=== PATIENT | female | born 1970 | race Caucasian/White ===

== ENCOUNTER → 2021-05-28 13:15 | Outpatient (CLI) | payer BC, SELFPAY ==
--- NOTE | 2021-05-28 | DI.RAD.S_ITS ---
PROCEDURE: XR KNEE LT 3V INDICATIONS: Pain in left knee TECHNIQUE: 3 views of the knee were acquired. COMPARISON: None. FINDINGS: Bones: No fractures or dislocations. No suspicious bony lesions. Moderate tricompartmental degenerative changes of the left knee with moderate medial femorotibial compartment joint space narrowing. Marginal osteophytes noted in all 3 compartments. Moderate joint space narrowing of the lateral patellofemoral joint. Soft tissues: Small-moderate sized suprapatellar joint effusion. No suspicious soft tissue calcifications. IMPRESSION: Left knee without acute fracture or dislocation. Moderate tricompartmental degenerative changes of the left knee most severe in the medial femorotibial compartment and lateral patellofemoral compartment. [id number] suprapatellar effusion. Dictated by: Misael Hanson M.D. on 05/28/2021 at 14:04 Approved by: Misael Hanson M.D. on 05/28/2021 at 14:06
== END ==
PROVIDERS: PCP Family Medicine; Referring Provider Family Medicine; Visit Provider Family Medicine
DX: M25.562 Pain in left knee (principal); M25.462 Effusion, left knee
CPT/HCPCS: 73562

== ENCOUNTER → 2021-06-21 13:40 | Outpatient (CLI) | payer BC, SELFPAY ==
--- NOTE | 2021-06-21 | DI.MRI.S_ITS ---
PROCEDURE: MR KNEE LT WO CON INDICATIONS: Pain in left knee TECHNIQUE: Noncontrast sagittal PD fast spin echo and T2 fast spin echo with fat saturation, sagittal 3-D FLASH with fat saturation; coronal T1 spin echo and PD fast spin echo with fat saturation, and axial PD fast spin echo with fat saturation through the knee. COMPARISON: [facility], CR, XR KNEE LT 3V, 05/28/2021, 13:09. FINDINGS: Image quality: Excellent. Menisci: There is medial meniscal extrusion and horizontal tear involving the posterior horn of the medial meniscus. There is intrasubstance degeneration of the body and anterior horn of the medial meniscus. The lateral meniscus appears intact with mild intrasubstance degeneration. The meniscal root ligaments appear intact. Cruciate ligaments: The anterior and posterior cruciate ligaments appear intact. Medial structures: There is grade 1 sprain of the medial collateral ligament. The semimembranosus tendon insertions and meniscocapsular junction appear intact. Visualized portions of the pes anserinus tendons appear normal. No abnormal bursal fluid. Lateral structures: The lateral collateral ligament, long and short heads of the biceps femoris tendon appear intact. The popliteus tendon appears normal. Iliotibial band appears normal. Anterior structures: The quadriceps and patellar tendons appear intact. Patellar alignment is normal. No femoral trochlear dysplasia or ventral trochlear prominence. No edema in the infrapatellar fat pad. Bones and cartilage: No bone marrow contusions or fractures. There is mild red marrow conversion. There is tricompartmental chondromalacia, most pronounced in the medial and lateral femorotibial compartment and the patellofemoral compartment. And node osteochondral lesion is suspected in the medial femoral condyle. There is full-thickness cartilage defect in the medial femoral condyle with subchondral edema. Joint space: There is large knee joint effusion. Small Cintron's cyst. Normal appearing synovial plicae are incidentally noted. IMPRESSION: 1. Medial meniscus extrusion and horizontal tear of the posterior horn of the medial meniscus. There is also intrasubstance degeneration of the body and anterior horn of the medial meniscus. 2. Grade 1 sprain of MCL. 3. An osteochondral lesion involving the medial femoral condyle. 4. Tricompartmental chondromalacia, most pronounced in the medial femorotibial compartment and patellofemoral compartment. 5. Large knee joint effusion. 6. Small Cintron's cyst. 7. Mild red marrow conversion. This finding may be secondary to strenuous exercise, cigarette smoking or hematological disorder such as anemia. Recommend clinical correlation. Dictated by: Aldair Rodriguez M.D. on 06/21/2021 at 16:28 Approved by: Aldair Rodriguez M.D. on 06/21/2021 at 16:41
== END ==
PROVIDERS: PCP Family Medicine; Referring Provider Family Medicine; Visit Provider Family Medicine
DX: S83.242A Other tear of medial meniscus, current injury, left knee, initial encounter (principal); S83.412A Sprain of medial collateral ligament of left knee, initial encounter; M94.262 Chondromalacia, left knee; M71.22 Synovial cyst of popliteal space [Baker], left knee; M25.462 Effusion, left knee; M25.562 Pain in left knee
CPT/HCPCS: 73721

== ENCOUNTER → 2023-03-09 12:50 | Outpatient (CLI) | payer BC, SELFPAY ==
--- NOTE | 2023-03-09 12:53 | DI.US.S_ITS ---
PROCEDURE: US ABDOMEN LIMITED INDICATIONS: RUQ PAIN / RULE OUT ACUTE GALLBLADDER ISSUES TECHNIQUE: Real-time scanning was performed of the abdominal and retroperitoneal organs, with image documentation. COMPARISON: None. FINDINGS: Liver: The liver measures 17.1 cm in length and demonstrates increased echogenicity. Gallbladder: The gallbladder wall measures approximately 2 mm in diameter and is only partially characterized. No stones, sludge, pericholecystic fluid, or sonographic Byers sign. Biliary ducts: Intrahepatic bile ducts are non-dilated. Extrahepatic bile duct caliber measures 4 mm. Normal is 6-7 mm or less in diameter, or 10 mm or less post-cholecystectomy. Pancreas: The pancreas is poorly characterized but appears echogenic where visualized. IMPRESSION: 1. Increased hepatic echogenicity noted likely related to fatty infiltration of the liver but other sources of hepatocellular disease cannot be excluded. 2. No cholelithiasis or findings to suggest choledocholithiasis or acute cholecystitis. However, this is a limited study given patient body habitus. Dictated by: Rima Wang M.D. on 03/09/2023 at 14:53 Approved by: Rima Wang M.D. on 03/09/2023 at 14:54
[2023-03-09 13:31] LABS: Add Manual Diff / Slide Review NO; Basophils Absolute Auto 0 /uL (0-100); Basophils Percent Auto 0.6 % (0-2); Eosinophils Absolute Auto 100 /uL (0-450); Eosinophils Percent Auto 1.2 % (2-4); Hematocrit 38.4 % (36-46); Hemoglobin 12.7 g/dL (12.0-16.0); Lymphocytes Absolute Auto 1900 /uL (1100-4500); Lymphocytes Percent Auto 30.1 % (25-40); Mean Corpuscular Hemoglobin 29.2 PG (26-34); Mean Corpuscular Volume 88.4 fL (80-100); Monocytes Absolute Auto 300 /uL (0-900); Monocytes Percent Auto 5.4 % (3-14); Neutrophils Absolute Auto 3900 /uL (1500-7000); Neutrophils Percent Auto 62.7 % (50-75); Platelet Count 247 X10^3/uL (150-400); Red Blood Cell Count 4.34 X10^6/uL (4.0-5.2); Red Cell Distribution Width 13.8 % (11.6-14.8); White Blood Cell Count 6.2 X10^3/uL (4.5-11.0)
[2023-03-09 13:49] LABS: Alanine Aminotransferase 20 IU/L (<35); Albumin 4.2 g/dL (3.5-5.0); Albumin Globulin Ratio 1.2 (1.0-2.8); Alkaline Phosphatase 74 U/L (38-126); BUN Creatinine Ratio 28.8 (6-22); Bilirubin Total 0.6 mg/dL (0.2-1.3); Blood Urea Nitrogen 19 mg/dL (7-17); Calcium 9.3 mg/dL (8.4-10.2); Carbon Dioxide 28 mmol/L (22-32); Chloride 103 mmol/L (98-107); Estimated Glomerular Filt Rate > 60 mL/min (>60); Globulin 3.4 g/dL (1.7-4.1); Glucose 107 mg/dL (70-100); HEMOLYSIS < 15 (0-50); Potassium 4.4 mmol/L (3.4-5.1); Sodium 140 mmol/L (137-145); Total Protein 7.6 g/dL (6.3-8.2)
[2023-03-10 15:08] LABS: Aspartate Aminotransferase 23 IU/L (14-36)
== END ==
PROVIDERS: PCP Family Medicine; Referring Provider Family Medicine; Visit Provider Family Medicine
DX: R10.11 Right upper quadrant pain (principal)
CPT/HCPCS: 36415; 76705; 80053; 85025

== ENCOUNTER → 2024-04-30 10:49 | Outpatient (CLI) | payer OTHER, SELFPAY ==
--- NOTE | 2024-04-30 10:54 | DI.RAD.S_ITS ---
PROCEDURE: XR KNEE RT 3V INDICATIONS: KNEE PAIN TECHNIQUE: 3 views of the knee were acquired. COMPARISON: [facility], CR, XR KNEE LT 3V, 05/28/2021, 13:09. FINDINGS: Diffuse osseous demineralization. No acute fracture or dislocation. Moderate tricompartmental osteoarthritis, most conspicuous in the medial compartment. Small joint effusion. Surgical clips at the level of the anterior calf. IMPRESSION: Moderate tricompartmental osteoarthritis, most conspicuous in the medial compartment. Dictated by: Davonte Jcaob M.D. on 04/30/2024 at 12:05 Approved by: Davonte Jacob M.D. on 04/30/2024 at 12:06
== END ==
PROVIDERS: PCP Family Medicine; Referring Provider Family Medicine; Visit Provider Family Medicine
DX: M17.11 Unilateral primary osteoarthritis, right knee (principal); M25.561 Pain in right knee
CPT/HCPCS: 73562

== ENCOUNTER 2024-08-21 14:26 | Emergency (ER) | payer OTHER, SELFPAY ==
[2024-08-21 14:51] VITALS: BP 159/91; PULSE 81; RESP 20; TEMP 37; O2SAT 96; BMI 45.9
--- NOTE | 2024-08-21 15:26 | DI.US.S_ITS ---
PROCEDURE: US PERIPH VENOUS LOW EXTREM RT INDICATIONS: r/o dvt TECHNIQUE: Real-time imaging, as well as color and pulse Doppler interrogation, were performed of the lower extremity deep veins from the inguinal ligament to the popliteal fossa, with documentation of the visualized calf veins. COMPARISON: None. FINDINGS: Patient unable to tolerate compression at the mid femoral vein level. The common femoral, femoral, popliteal, and the visualized calf veins are normally compressible, and free of intraluminal thrombus. Color and pulse Doppler demonstrate normal phasic intraluminal flow. There is normal augmentation response to distal compression maneuver. Short segment superficial venous thrombus is seen within the proximal lower leg. IMPRESSION: 1. No findings of lower extremity deep venous thrombosis. 2. Short segment superficial venous thrombosis in the proximal lower leg. Approved by: Wesley Rodriguez M.D. on 08/21/2024 at 16:28
--- NOTE | 2024-08-21 18:08 | ED.EXTPRO ---
HPI - Extremity Problem General Chief complaint: Extremity Problem,Nontraumatic Stated complaint: Right leg pain Time Seen by Provider: 08/21/24 18:08 Mode of arrival: Ambulatory History of Present Illness HPI Narrative: 53-year-old woman with right leg pain increasing since August 14. 12/13 pain difficult standing for long periods of time, PCP requested that she come to the emergency department to rule out DVT. She has a history of pain issues involving her right hip with multiple sensitivities to medications. After traumatic incident in 1996 she had some varicose veins around her right ankle, was apparently started on warfarin at that time and had significant bleeding. She is very anxious about blood thinners at this time and requests assistance with pain control. She had an upper respiratory infection about 3 weeks ago, mild cough and was given azithromycin and prednisone to help with that has taken a single dose of both. Related Data Previous Rx's ?Medication ?Instructions ?Recorded hydrocodone 5 mg-acetaminophen 325 1 tab PO Q8H PRN pain #14 tabs 08/21/24 mg tablet Allergies Allergy/AdvReac Type Severity Reaction Status Date / Time acetaminophen (From Percocet) Allergy Mild Verified 08/21/24 14:54 floxacillin Allergy Mild Verified 08/21/24 14:54 oxycodone (From Percocet) Allergy Mild Verified 08/21/24 14:54 Review of Systems Review of Systems Narrative: Pertinent positive and negative findings as per HPI Patient History Smoking Status: Never smoker Exam Initial Vital Signs Initial Vital Signs: Vital Signs Temperature 98.6 F 08/21/24 14:51 Pulse Rate 81 08/21/24 14:51 Respiratory Rate 20 08/21/24 14:51 Blood Pressure 159/91 H 08/21/24 14:51 Pulse Oximetry 96 08/21/24 14:51 Oxygen Delivery Method Room Air 08/21/24 14:51 General: Anxious, complaining of right leg pain Able to give a complete and coherent history. Well-nourished well-developed Respiratory: Lungs are clear to auscultation, no wheezing no rales no rhonchi. Full and symmetrical air movement Cardiac: Regular rate and rhythm no murmurs no bruits Abdomen: Soft, nontender, no rebound or guarding, no flank pain Skin: Warm and dry, no rashes Neurologic: Grossly neurologically intact with no obvious asymmetries or abnormalities Extremities: Right leg to the upper thigh is significantly more swollen than the left. Swollen enough that she is having pain from the tense edema. She does have palpable pulses in the right foot Psych: Cooperative, appropriate insight and affect Course Orders Ordered: ED Orders 08/21/24 15:26 perip venous low extrem rt Stat Discontinued Medications Apixaban (Apixaban 5 Mg Tablet) 10 mg PO NOW ONE Stop: 08/21/24 20:11 Vital Signs Vital signs: Vital Signs - 8 hr 08/21/24 14:51 08/21/24 19:54 08/21/24 19:54 Temperature 98.6 F Pulse Rate 81 76 Respiratory Rate 20 Blood Pressure 159/91 H 173/94 H Pulse Oximetry 96 97 Oxygen Delivery Method Room Air 08/21/24 20:00 08/21/24 20:00 08/21/24 20:20 Temperature 98.1 F Pulse Rate 72 Respiratory Rate Blood Pressure 139/84 Pulse Oximetry 97 Oxygen Delivery Method MDM - Extremity (Nontraumatic) Imaging Data US - DVT: Radiologist's Impression: PROCEDURE: US [facility] VENOUS LOW EXTREM RT INDICATIONS: r/o dvt TECHNIQUE: Real-time imaging, as well as color and pulse Doppler interrogation, were performed of the lower extremity deep veins from the inguinal ligament to the popliteal fossa, with documentation of the visualized calf veins. COMPARISON: None. FINDINGS: Patient unable to tolerate compression at the mid femoral vein level. The common femoral, femoral, popliteal, and the visualized calf veins are normally compressible, and free of intraluminal thrombus. Color and pulse Doppler demonstrate normal phasic intraluminal flow. There is normal augmentation response to distal compression maneuver. Short segment superficial venous thrombus is seen within the proximal lower leg. IMPRESSION: 1. No findings of lower extremity deep venous thrombosis. 2. Short segment superficial venous thrombosis in the proximal lower leg. Approved by: Wesley Rodriguez M.D. on 08/21/2024 at 16:28 [facility] Narrative Medical decision making narrative: 53-year-old woman presents from primary care office complaining of right leg pain and swelling to the point that her home tramadol and ibuprofen is no longer effective. Swelling has been worsening over the past 4 days. She is not describing fevers or chills. She had a mild upper respiratory infection has resolved approximately 3 weeks ago still has minimal intermittent cough and was started on azithromycin for this. She was also started on prednisone thinking that the pain and swelling in her leg is related to sciatica. No DVT is found with ultrasound, however she does have a short segment of superficial venous thrombosis in the proximal lower leg that likely is contributing to the swelling in the pain. We talked about keeping the leg elevated, compression, adequate pain control which will include Vicodin. A tramadol is ineffective, she has difficulty taking Percocet. She understands Vicodin is a narcotic can cause addiction and will cause constipation. She will follow up with her primary care physician. There was no indication for further workup or hospitalization at this time she is safe for discharge Discharge Plan Departure Patient Disposition: Home Clinical Impression: Lower extremity edema Superficial thrombophlebitis Qualifiers: Superficial thrombophlebitis-Involved body area: lower extremity Laterality: right Qualified Code(s): I80.01 - Phlebitis and thrombophlebitis of superficial vessels of right lower extremity Instructions: DI for Superficial Thrombophlebitis Activity Restrictions/Additional Instructions: Thank you for coming in today The ultrasound of your leg shows a superficial blood clot. This is likely responsible for much of the swelling in your leg which is then causing the majority of the pain in your leg. Fortunately, there is no deep blood clot. Treatment of a superficial clot is pain medication, compression, warm compresses if this helps, gentle massage. You do not need to be anticoagulated at this time For pain control, you can continue ibuprofen, I have given you a brief course of Vicodin. This time I am not seeing an indication that this is related to your back. I do not think that the prednisone that you have been given his going to provide significant benefit to you and make the swelling a bit worse. Regarding your cough, this is a post viral cough. With all the viruses this recent spring I have been seeing extended times with continued coughing after the viruses done. There was no evidence of a bacterial infection, antibiotics, including the azithromycin you started today, is not going to help in any way Please do follow up with your primary care physician in about a week. If you are still having such severe pain in your right leg, the physician may decide to do additional workup at that time. If you feel that you are getting significantly worse, developing new symptoms please do return to the ER Prescriptions: New hydrocodone-acetaminophen 5-325 mg tablet 1 tab PO Q8H PRN (Reason: pain) Qty: 14 0RF Referrals: Driss Prescott MD [Primary Care Provider, [facility]] Stand Alone Forms: Patient Portal/API
[2024-08-21 19:54] VITALS: BP 173/94; PULSE 76; O2SAT 97
[2024-08-21 20:00] VITALS: BP 139/84; PULSE 72; O2SAT 97
[2024-08-21 20:20] VITALS: TEMP 36.7
[2024-08-21] MEDS: HYDROCODONE/ACET 5/325 TABLET 2 TAB PO (20:31)
[2024-08-21] MEDS: HYDROCODONE/ACET 5/325 PREPACK 1 BOTTLE MISC (20:31)
[2024-08-21 20:47] VITALS: BP 139/94; PULSE 94; RESP 18; O2SAT 98
== END 2024-08-21 20:48 | disposition home or self-care (01) ==
PROVIDERS: Emergency Provider Emergency Medicine; PCP Family Medicine
DX: R60.0 Localized edema (principal); I80.01 Phlebitis and thrombophlebitis of superficial vessels of right lower extremity
CPT/HCPCS: 93971; 99283

== ENCOUNTER → 2024-09-10 12:01 | Outpatient (CLI) | payer OTHER, SELFPAY ==
--- NOTE | 2024-09-10 12:03 | DI.MRI.S_ITS ---
PROCEDURE: MR KNEE RT WO CON INDICATIONS: Sprain of right knee TECHNIQUE: Noncontrast sagittal PD fast spin echo and T2 fast spin echo with fat saturation, sagittal 3-D FLASH with fat saturation; coronal T1 spin echo and PD fast spin echo with fat saturation, and axial PD fast spin echo with fat saturation through the knee. COMPARISON: [facility], MR, MR KNEE LT WO CON, 06/21/2021, 13:51. FINDINGS: Image quality: Excellent. Menisci: In the medial meniscus, there is complete maceration of the anterior root. There is marked extrusion of the medial meniscus body. In the lateral meniscus, there is complex tear of the anterior horn, with complete maceration of the anterior root. Marked extrusion of the lateral meniscus body. Cruciate ligaments: The anterior and posterior cruciate ligaments appear intact. Medial structures: Medial bowing of the MCL, with low-grade tear in the proximal segment. Lateral structures: The lateral collateral ligament, long and short heads of the biceps femoris tendon appear intact. The popliteus tendon appears normal; the popliteofibular ligament appears intact. The posterosuperior and anteroinferior popliteomeniscal fascicles appear intact. The arcuate and fabellofibular ligaments appear intact, on either side of the lateral inferior geniculate artery. Iliotibial band appears normal. Anterior structures: The quadriceps and patellar tendons appear intact. Patellar alignment is normal. No femoral trochlear dysplasia or ventral trochlear prominence. No edema in the infrapatellar fat pad. Bones and cartilage: Mild chondrosis of the patellofemoral compartment with multifocal mild subchondral marrow edema in the patella. Severe chondrosis of the medial compartment, with complete chondral denudation in the weight-bearing portion of the medial femoral condyle, in the medial tibial plateau, with mild subchondral marrow edema. Mild chondrosis of the lateral compartment. No acute fracture. Joint space: Large knee effusion with synovitis. Moderate sized popliteal cyst. No intra-articular body. Popliteal vasculature is unremarkable. Diffuse subcutaneous edema about the knee. IMPRESSION: 1. Tear of the medial and lateral meniscus. 2. Severe, medial compartment predominant chondrosis. 3. Large knee effusion with synovitis. 4. Moderate sized popliteal cyst. Dictated by: Jayla Rocha M.D. on 09/10/2024 at 14:47 Approved by: Jayla Rocha M.D. on 09/10/2024 at 14:57
== END ==
LOC: MRI 12:02
PROVIDERS: PCP Family Medicine; Referring Provider Internal Medicine; Visit Provider Internal Medicine
DX: S83.271A Complex tear of lateral meniscus, current injury, right knee, initial encounter (principal); S83.241A Other tear of medial meniscus, current injury, right knee, initial encounter; M94.261 Chondromalacia, right knee; M25.461 Effusion, right knee; M71.21 Synovial cyst of popliteal space [Baker], right knee; X58.XXXA Exposure to other specified factors, initial encounter
CPT/HCPCS: 73721